=== PATIENT | female | born 2000 | race Caucasian/White ===

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

== ENCOUNTER 2024-07-03 05:28 | Emergency (ER) | payer MEDICAID ==
[~2024-07-03] VITALS: Ht 170.2 cm; Wt 128.7 kg
[~2024-07-03 05:28] MED LIST changes: +ACET-2708 MT; +ONDA4TAB50 MT
[2024-07-03 05:37] VITALS: O2SAT 99
[2024-07-03 05:48] VITALS: BP 105/87; PULSE 71; RESP 18; TEMP 36.7; O2SAT 99
[2024-07-03] MEDS ORDERED: SULF1TAB48 MT (06:09)
[2024-07-03] MEDS ORDERED: CEPH500T MT (06:09)
== END 2024-07-03 06:13 | disposition home or self-care (01) ==
LOC: ER 05:28
DX: L08.9 Local infection of the skin and subcutaneous tissue, unspecified (principal); N64.4 Mastodynia; F41.9 Anxiety disorder, unspecified; F32.A Depression, unspecified; Z79.899 Other long term (current) drug therapy
CPT/HCPCS: 99283